=== PATIENT | male | born 1935 | race Caucasian/White ===

== ENCOUNTER 2019-03-13 15:15 | Outpatient (CLI) | payer MEDICARE, BC, SELFPAY ==
--- NOTE | 2019-03-13 15:25 | XR_ITS ---
WS: [id number] CHEST 2 VIEWS HISTORY: END OF BATTERY LIFE OF DEEP BRAIN STIMULATOR COMPARISON: 08/13/2009 Lungs: Battery pack for the deep brain stimulator electrodes project over the RIGHT mid lung. No dennise k in the wires. There is a revised battery pack projecting over the LEFT lung. Visualized lungs are c lear and hyperexpanded. Cardiac size: Normal. Mediastinum/Aorta: Mild atherosclerosis aorta. Small hiatal hernia. Bones: Normal. XR/XR chest 2V* [id number] IMPRESSION: 1. Generator for the deep brain similar projects over the mid RIGHT lung with no fracture or complication identified. 2. Hiatal hernia and mild emphysema.
--- NOTE | 2019-03-13 15:25 | XR_ITS ---
WS: [id number] SOFT TISSUE neck and skull 3 VIEW(S) TECHNIQUE: AP and lateral views of the neck/skull in soft tissue technique are performed. HISTORY: END OF BATTERY LIFE OF DEEP BRAIN STIMULATOR COMPARISON: None available. Deep brain stimulator wires and electrodes are noted centered over the skull extending to the region of the thalamus. The wires are intact. Wires extend along the RIGHT lateral neck soft tissues. XR/XR soft tissue neck [id number] IMPRESSION: Bilateral deep brain stimulator electrodes and wires projecting over the skull and neck are intact. No displacement or fractures.
== END 2019-03-13 15:16 | disposition home or self-care (01) ==
LOC: WPI 15:22
PROVIDERS: Family Provider Family Medicine; PCP Family Medicine; Referring Provider Family Medicine; Visit Provider Licensed Practical Nurse
DX: Z45.42 Encounter for adjustment and management of neurostimulator (principal); K44.9 Diaphragmatic hernia without obstruction or gangrene; J43.9 Emphysema, unspecified
CPT/HCPCS: 70360; 71046

== ENCOUNTER 2019-04-05 10:21 | Day surgery (SDC) | payer MEDICARE, BC, SELFPAY ==
[2019-04-04 08:30] VITALS: BMI 27.3
--- NOTE | 2019-04-05 10:45 | ECG_ITS ---
Measurements Intervals [place] Rate: 74 P: 258 VA: 133 QRS: -12 QRSD: 90 T: 15 QT: 371 QTc: 414 Probable atrial fibrillation, significant baseline artifact ABNORMAL RHYTHM ECG No previous ECG available for comparison Electronically Signed On 04-05-2019 16:00:10 VIDEO PRODUCER by Valentin Conklin M.D. [email or web address]
[2019-04-05 10:58] VITALS: BP 178/82; PULSE 68; RESP 18; TEMP 36.1; O2SAT 97
[2019-04-05] MEDS: sodium chloride 0.9% 1,000 ML 30 ML IV (11:20)
--- NOTE | 2019-04-05 14:01 | P.ANES_ITS ---
Pre-Anesthetic Assessment Pre-Anesthetic Assessment: Height/Weight: Height 1.73 m Weight 81.647 kg Temp Pulse Resp BP Pulse Ox 97 F L 68 18 178/82 97 04/05/19 10:58 04/05/19 10:58 04/05/19 10:58 04/05/19 10:58 04/05/19 10:58 Preop Diagnosis: Parkinson's disease Proposed Procedure: Operation Date: 04/05/19 12:30 Proposed Procedures p Deep Brain Stimulator Stage 2(Not Applicable) - Leonardo Vicente MD Familial anesthetic complications: takes longer to wake up Was Beta Trisha taken within 24 hours: N/A Last intake: Intake Last Liquid Date 04/04/19 Last Liquid Time 19: Last Solid Date 04/04/19 Last Solid Time Social: Social History: No alcohol and No tobacco Exam: Pre-Anes Outpt Exam: alert, oriented x 3, clear to auscultation bilaterally and regular rate & rhythm Airway: Cervical ROM: WNL MP: 3 Dentition: Full Pulmonary: Pulmonary: Sleep apnea (CPAP) CV/HEM: CV/HEM: Afib and Arrythmia Comments: EKG - 04/05 junction rhythm, occassional PVCs : : None reported Hepatic: Hepatic: None reported GI: GI: None reported Metabolic: Metabolic: None reported Musc/skel: Musc/skel: None reported Neuropsych: Neuropsych: None reported Comments: parkinson's disease, dizziness, balance issues Anesthetic Plan: ASA status: III Anesthesia: MAC Risk of > 500 ml blood loss (7ml/kg in children): No Meds/Allergies Current Medications: Current Medications Generic Name Dose Route Start Last Admin Trade Name Freq PRN Reason Stop Dose Admin Sodium Chloride 1,000 mls @ 30 ml s/hr 04/05/19 10:15 04/05/19 11:20 Sodium Chloride 0.9% IV 04/06/19 10:14 30 mls/hr .Q24H MARY ANN Administration PFSH Anesthesia PFSH: Surgical History (Updated 03/13/19 @ 15:10 by Leonardo Vicente MD) S/P deep brain stimulator placement (Chronic) Social History Smoking and tobacco status: never smoked Second hand smoke exposure: No Alcohol intake: never Lives independently: Yes Household members: spouse Housing: House Marital status: Current occupational status: retired 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
[2019-04-05] MEDS: vancomycin 1,000 MG in sodium chloride 0.9% 250 ML 250 MG IV (15:17)
--- NOTE | 2019-04-05 15:39 | P.HPUD_ITS ---
H&P update H&P Update: DATE OF SURGERY/PROCEDURE: 04/05/19 DATE H&P PERFORMED: H&P UPDATE INFORMATION: H&P completed within last 30 days and H&P to be scanned into chart PREOP DIAGNOSIS: Parkinson's disease PRIMARY INDICATION FOR PROCEDURE: DBS pulse generator end of service PLANNED PROCEDURE: Operation Date: 04/05/19 12:30 Proposed Procedures Deep Brain Stimulator pulse generator replacement - Leonardo Vicente MD Full H&P Medications/Allergies: Current Medications: Current Medications Generic Name Dose Route Start Last Admin Trade Name Freq PRN Reason Stop Dose Admin Sodium Chloride 1,000 mls @ 30 ml s/hr 04/05/19 10:15 04/05/19 11:20 Sodium Chloride 0.9% IV 04/06/19 10:14 30 mls/hr .Q24H MARY ANN Administration Perinent History: Medical/Surgical History: Medical History (Updated 03/13/19 @ 15:10 by Leonardo Vicente MD) End of battery life of deep brain stimulator (Acute) Parkinson disease (Chronic) Family History: Family History (Updated 03/08/19 @ 12:35 by Petrona Fonseca LPN) Other Dementia Kidney disease Social History: Social History Smoking and tobacco status: never smoked Second hand smoke exposure: No Alcohol intake: never Lives independently: Yes Household members: spouse Housing: House Marital status: Current occupational status: retired 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
--- NOTE | 2019-04-05 15:41 | P.OP_ITS ---
Brief Operative Note: Date of procedure: 04/05/19 Pre-op diagnosis: Parkinson's disease, Brain Neurostimulator end of service Post-op diagnosis: same Procedure Done: Replacement of subcutaneous programmable pulse generator Surgeon: Leonardo Vicente Estimated blood loss (mL): 2 Complications: None Post-op Plan: Home per Ambulatory Surgery protocol Condition: stable Disposition: same day Coding Level of Care Code Acute Small Electric Engine Technician for Amirah Lewis
[2019-04-05 16:57] VITALS: BP 134/67; PULSE 76; RESP 18; TEMP 36.7; O2SAT 95
[2019-04-05 17:27] VITALS: BP 135/66; PULSE 638; RESP 18; TEMP 36.7; O2SAT 95
--- NOTE | 2019-04-05 21:18 | PM.OP ---
Operative Report Date of procedure: April 05, 2019 Pre-op Diagnosis: Parkinson's disease Pre-op Diagnosis: Neurostimulator End of Service Post-op diagnosis: same Procedure Done: Replacement of subcutaneous programmable pulse generator, with connection to Deep Brain Stimulation electrode arrays. Implants: Med[employer]onic [id number] Pulse Generator Specimens removed/disposition: Med[employer]onic Activa PC Surgeon: Leonardo Vicente Anesthesia: MAC Estimated blood loss (mL): 2 Complications: None. Condition: stable Disposition: same day Brief History: The patient is an 83-year-old male with Parkinson's disease and implanted bilateral Deep Brain Stimulators. His right-sided pulse generator was noted to be nearing [id number], and replacement was recommended by his managing Neurologist. After review of the diagnostic and treatment options with the risks/potential benefits/rationale for each, the patient requested to proceed with device replacement. Procedure: After routine preoperative evaluation and informed consent were obtained, the patient was taken to the Operating Room and positioned supine on the operating table. He was maintained under IV sedation by Anesthesia personnel. The right anterior chest was prepared with hair clippers, scrubbed with betadine, and prepped with Duraprep. The area was then draped with sterile towels and drapes. The prior right infraclavicular surgical scar was marked with a sterile skin marker. I[place]an surgical barrier was applied. The proposed incision site was infiltrated with 1% lidocaine with epinephrine. A skin incision was made, and the subcutaneous capsule containing the pulse generator was opened. The pulse generator was delivered from the subcutaneous pocket. The set-screws were released and the extension lead tails were delivered from the ports on the pulse generator. The extension lead tails were then advanced into the appropriate ports on the replacement pulse generator. A lead test was performed. No faults were demonstrated. The incision site was copiously irrigated with sterile saline and antibiotic irrigation. The pulse generator was placed within the subcutaneous pocket, with excess lead coiled deep/adjacent to the device. It was secured with a silk anchor suture through a suture loop on the device. Wound closure was performed in multiple layers with 2-0 Vicryl Plus simple interrupted closure of the deep dermis. Final skin closure was performed with 3-0 Vicryl Plus in a running subcuticular pattern. Steri-Strips were applied, and a sterile dressings was placed. The patient tolerated the procedure well. All sponge, needle and instrument counts were correct at the completion of the procedure.
== END 2019-04-05 18:24 | disposition home or self-care (01) ==
PROVIDERS: Family Provider Family Medicine; PCP Family Medicine; Visit Provider Specialist
PROC: (CPT 61885; principal; 2019-04-05 12:30)
DX: Z46.2 Encounter for fitting and adjustment of other devices related to nervous system and special senses (principal); G20 Parkinson's disease; G47.30 Sleep apnea, unspecified; I48.91 Unspecified atrial fibrillation
CPT/HCPCS: 61885; 12345; 88300; 93005; 96365; C1767; J2001; J2704; J3370; J3490; J7030; J7050

== ENCOUNTER → 2019-07-01 12:24 | Outpatient (BNVA) | payer MEDICARE, BC, SELFPAY | PROVIDERS: Family Provider Family Medicine; PCP Family Medicine; Visit Provider Specialist | DX: G25.0 Essential tremor (principal); Z96.89 Presence of other specified functional implants | CPT/HCPCS: 99214 ==